=== PATIENT | male | born 1940 | race Two or more races ===

== ENCOUNTER 2024-09-20 07:04 | Emergency (ER) | payer MEDICARE, MEDICAID, SELFPAY ==
[2024-09-20 07:16] VITALS: BP 111/72; PULSE 70; RESP 18; TEMP 36.7; O2SAT 96; BMI 24.5
--- NOTE | 2024-09-20 07:47 | XR_ITS ---
Examination: Hand, right 3 views Technique: Hand AP, oblique, lateral 3 views Date and time of exam: September 20, 2024, 0755 hours INDICATIONS: Crush injury to the hand today with finger pain FINDINGS: Severe osteopenia 2 mm linear foreign body in the soft tissue between the first and second metacarpals No acute fracture IMPRESSION: No acute fracture
--- NOTE | 2024-09-20 07:49 | PD.EDHAND ---
Upper Extremity Injury RME/HPI General Chief Complaint: Hand/Wrist Problems Stated Complaint: HAND INJURY Time Seen by Provider: 09/20/24 07:20 Source: patient Arrival date/time: 09/20/24 07:04 Mode of arrival: ambulatory Limitations: no limitations RME / HPI complaint: injury to: right, hand and finger (Digit #3 4 and 5) Onset (ago): day(s) (Last night) Other Extremity Injury: Right: hand Other injuries: none Place: home Severity scale (1-10): 5 Relieving factors: immobilization Exacerbating factors: movement of extremity Context: direct blow (Hoarse versus right hand) Associated symptoms: denies other symptoms Related Data Home Medications ?Medication ?Instructions ?Recorded ?Confirmed aspirin 81 mg tablet 81 mg PO DAILY ##0 06/29/12 05/22/21 atenolol 25 mg tablet 25 mg PO BID ##0 06/29/12 05/22/21 atorvastatin 40 mg tablet (Lipitor) 40 mg PO QPM ##0 06/29/12 05/22/21 losartan 50 mg tablet (Cozaar) 50 mg PO daily ##0 06/29/12 05/22/21 amlodipine 2.5 mg tablet 2.5 mg PO QDAY 05/22/21 05/22/21 cilostazol 50 mg tablet 50 mg PO BID 05/22/21 05/22/21 tamsulosin 0.4 mg capsule mg PO 05/22/21 tamsulosin 0.4 mg capsule (Flomax) 0.4 mg PO QDAY 05/22/21 05/22/21 Allergies Allergy/AdvReac Type Severity Reaction Status Date / Time No Known Allergies Allergy Verified 09/20/24 07:11 Review of Systems Constitutional Constitutional: Reports system reviewed and no additional complaints, except as documented Eyes Eyes: Reports system reviewed and no additional complaints, except as documented, Denies dry eyes, Denies exophthalmos and Reports floaters Cardiovascular Cardiovascular: Denies chest pain with activity and Denies claudication ED Exam Narrative Physical exam: The right hand at digit #3 distally positive for a skin tear. Digit #4 at the MCP #4 and 5 positive for a macerated skin. There is decreased range of motion secondary to subjective pain. Neurovascular appears to be intact. Digit #5 the skin is a macerated and there is bone exposed. General Limitations: Present no limitations General appearance: Present alert and in no apparent distress Head Head exam: Present atraumatic Eye Eye exam: Present normal appearance and EOMI ENT ENT exam: Present normal exam, normal oropharynx and mucous membranes moist Neck Neck exam: Present normal inspection, full ROM and trachea midline Chest Chest inspection: Present normal inspection and symmetric chest wall rise Abdominal Exam Abdominal exam: Present soft and normal bowel sounds Extremities Exam Extremities exam: Present normal inspection and full ROM (As described above) Back Exam Back exam: Present normal inspection and full ROM Neurological Exam Neurological exam: Present alert and oriented X3 Psychiatric Psychiatric exam: Present normal affect and normal mood Skin Skin exam: Present warm, dry, intact (As described above) and normal color Course Course Course Narrative: The wounds will be cleaned and then dressed. An x-ray will be obtained of the right hand Quality Measures none (NA) Orders Category Date Time Status XR hand comp RT min 3V Stat Exams 09/20/24 07:47 Completed XR hand comp RT min 3V Stat Exams 09/20/24 08:45 Completed Lidocaine 1% 20 ml [Xylocaine 1% 20 ML] Med 09/20/24 10:44 Discontinued 20 ml INFL X1 ONE Vital Signs Vital signs: Vital Signs Temperature 98.1 F 09/20/24 07:16 Pulse Rate 70 09/20/24 07:16 Respiratory Rate 18 09/20/24 07:16 Blood Pressure 111/72 09/20/24 07:16 Pulse Oximetry (%) 96 09/20/24 07:16 Oxygen Delivery Method Room Air 09/20/24 07:16 Pulse ox room air is 96% PROCEDURES: Laceration Laceration 1: Site: hand Side (If applicable): right Description: irregular Amount of anesthesia used (mL): 20 Pre-repair: wound explored, irrigated extensively and deep structures intact Skin layer closed with: nylon Suture size (cm): 4-0 Number of sutures: 3 Technique: simple, interrupted Size: 4-0 Extremity Injury Patient data External records reviewed:: Other (specify) (NA) Clinical information provided by:: patient Social determinants that could affect healthcare access:: none (NA) How is presenting disease/condition affected by chronic disease/condition?: no chronic disease (NA) Evaluation data The following diagnostics were reviewed and interpreted by me:: other (specify) (NA) Lab and/or radiology exams considered but not ordered:: NA Interpretation Summary: NA Medications / Prescriptions Medications or Prescriptions considered but not ordered:: NA Medication administrations:: Medication Administration History Discontinued Medications Lidocaine HCl (Lidocaine Hcl 1% 20 Ml Vial) 20 ml INFL X1 ONE Stop: 09/20/24 10:45 Last Admin: 09/20/24 11:13 Dose: 20 ml Documented By: WES Comments: given to bell cuenca for administration NA Consultations Consultation(s) initiated? (list below): No Diagnosis Upper Extremity Injury Differential Diagnosis: finger sprain, dislocation of finger and fracture of hand Most likely diagnosis given after review of the tests above:: NA Admission Indicated Admission indicated?: not indicated Admission Request Was there a request for admission?: No Disposition Plan Disposition Plan: Discharge Discharge Attestation Discharge Attestation: The patient and all family members were given an opportunity to ask questions and understood the discharge instructions. Discharge instructions specifically effects, indications for sooner follow up or return to the emergency department, and the expected course of current diagnosis. Patient condition: Stable Discharge Plan Plan Patient Disposition: HOME (Self Care) Discharge Disposition comment: Discharged home in no apparent distress Patient condition on transfer: Stable Prescriptions/Referrals Prescriptions/Med Rec: No Action losartan [Cozaar] 50 MG tablet 50 mg PO daily Qty: 0 atorvastatin [Lipitor] 40 MG tablet 40 mg PO QPM Qty: 0 atenolol 25 MG tablet 25 mg PO BID Qty: 0 aspirin 81 MG tablet 81 mg PO DAILY Qty: 0 cilostazol 50 mg Tablet 50 mg PO BID amlodipine 2.5 mg Tablet 2.5 mg PO QDAY tamsulosin 0.4 mg Capsule PO tamsulosin [Flomax] 0.4 mg Capsule 0.4 mg PO QDAY Referrals: Ricardo Moss MD [Primary Care Provider] - In 1 week Problem List Clinical Impression: Laceration Patient/Caregiver Discharge Instructions Discharge Activity: activity as tolerated Print Language: Slovak Stand Alone Forms: Jazmine Award Info., Patient Portal Info Letter PA/MANUFACTURING QUALITY ENGINEER Supervising Physician PA/MANUFACTURING QUALITY ENGINEER Supervising Physician: Elder
--- NOTE | 2024-09-20 08:45 | XR_ITS ---
Examination: Hand, right 3 views Technique: Hand AP, oblique, lateral 3 views Date and time of exam: September 20, 2024 0904 hours INDICATIONS: Crush injury to the hand today, hand pain FINDINGS: Severe osteopenia Tiny opacities in the soft tissue between the fifth and fourth digits as well as the small linear foreign body in the soft tissue between the first and second metacarpals No acute fracture IMPRESSION: Foreign bodies as above
[2024-09-20] MEDS: LIDOCAINE HCL 1% 20 ML VIAL INFL (11:13)
[2024-09-20 12:05] VITALS: BP 115/73; PULSE 63; RESP 19; TEMP 36.6; O2SAT 99
[2024-09-20] MEDS: DIPHTH,PERTUSS(ACELL),TET VAC 0.5 ML SYR- ADULT IMi (12:31)
== END 2024-09-20 12:51 | disposition home or self-care (01) ==
PROVIDERS: Emergency Provider Physician Assistant; PCP Internal Medicine
DX: S61.411A Laceration without foreign body of right hand, initial encounter (principal); Z23 Encounter for immunization
CPT/HCPCS: 12001; 73130; 90471; 90715; 99283; J3490

== ENCOUNTER → 2024-10-05 | Outpatient (CLI) | payer MEDICARE, MEDICAID, SELFPAY | END | disposition home or self-care (01) | LOC: SWHD 08:16 | PROVIDERS: PCP Internal Medicine; Referring Provider Internal Medicine; Visit Provider Student in an Organized Health Care Education/Training Program | DX: S61.401A Unspecified open wound of right hand, initial encounter (principal); S61.202A Unspecified open wound of right middle finger without damage to nail, initial encounter; W55.12XA Struck by horse, initial encounter; Y93.9 Activity, unspecified; Z87.891 Personal history of nicotine dependence; N40.0 Benign prostatic hyperplasia without lower urinary tract symptoms; N18.9 Chronic kidney disease, unspecified; Z95.2 Presence of prosthetic heart valve | CPT/HCPCS: 11042; 97597; 99213; A9270; G0463 ==

== ENCOUNTER → 2024-10-11 | Outpatient (CLI) | payer MEDICARE, MEDICAID, SELFPAY ==
--- NOTE | 2024-10-11 | XR_ITS ---
Examination: Wrist, right 3 views Technique: Wrist AP, oblique, lateral 3 views Date and time: October 11, 2024, 0734 hours INDICATIONS: Injury to the wrist 2 weeks ago, wrist pain FINDINGS: 2 mm opaque foreign body in the soft tissue between the first and second metacarpals No acute fracture No dislocation IMPRESSION: No acute wrist fracture
--- NOTE | 2024-10-11 | XR_ITS ---
Examination: Hand, right 3 views Technique: Hand AP, oblique, lateral 3 views Date and time of exam: October 11, 2024, 0730 hours INDICATIONS: Injury to the hand 2 weeks ago, hand pain FINDINGS: 2 mm foreign body in the soft tissue between the first and second metacarpals 1 mm foreign body in the soft tissue between the proximal phalanges fourth and fifth digits Mild deformity distal aspect proximal phalanx fifth digit IMPRESSION: Opaque foreign bodies as above Recommend follow-up cone views fifth digit
== END | disposition home or self-care (01) ==
LOC: CDIM 07:09
DX: S60.351A Superficial foreign body of right thumb, initial encounter (principal); S60.450A Superficial foreign body of right index finger, initial encounter; S69.91XA Unspecified injury of right wrist, hand and finger(s), initial encounter; X58.XXXA Exposure to other specified factors, initial encounter
CPT/HCPCS: 73110; 73130

== ENCOUNTER → 2024-10-12 | Outpatient (CLI) | payer MEDICARE, MEDICAID, SELFPAY | END | disposition home or self-care (01) | LOC: SWHD 14:10 | PROVIDERS: PCP Internal Medicine; Referring Provider Internal Medicine; Visit Provider Student in an Organized Health Care Education/Training Program | DX: S61.401A Unspecified open wound of right hand, initial encounter (principal); S61.202A Unspecified open wound of right middle finger without damage to nail, initial encounter; W55.12XA Struck by horse, initial encounter; Z87.891 Personal history of nicotine dependence; N40.0 Benign prostatic hyperplasia without lower urinary tract symptoms; N18.9 Chronic kidney disease, unspecified; Z95.2 Presence of prosthetic heart valve | CPT/HCPCS: 97597; A9270 ==

== ENCOUNTER → 2024-10-26 | Outpatient (CLI) | payer MEDICARE, MEDICAID, SELFPAY | END | disposition home or self-care (01) | LOC: SWHD 14:39 | PROVIDERS: PCP Internal Medicine; Referring Provider Internal Medicine; Visit Provider Student in an Organized Health Care Education/Training Program | DX: S61.401A Unspecified open wound of right hand, initial encounter (principal); S61.202A Unspecified open wound of right middle finger without damage to nail, initial encounter; W55.12XA Struck by horse, initial encounter; Z87.891 Personal history of nicotine dependence; N40.0 Benign prostatic hyperplasia without lower urinary tract symptoms; N18.9 Chronic kidney disease, unspecified; Z95.2 Presence of prosthetic heart valve | CPT/HCPCS: 97597; A9270 ==

== ENCOUNTER → 2024-11-02 | Outpatient (CLI) | payer MEDICARE, MEDICAID, SELFPAY | END | disposition home or self-care (01) | LOC: SWHD 10:17 | PROVIDERS: PCP Internal Medicine; Referring Provider Internal Medicine; Visit Provider Student in an Organized Health Care Education/Training Program | DX: S61.401A Unspecified open wound of right hand, initial encounter (principal); W55.12XA Struck by horse, initial encounter; Z87.891 Personal history of nicotine dependence; N40.0 Benign prostatic hyperplasia without lower urinary tract symptoms; Z95.2 Presence of prosthetic heart valve | CPT/HCPCS: 99213; A9270; G0463 ==

== ENCOUNTER → 2024-11-29 | Outpatient (CLI) | payer MEDICARE, MEDICAID, SELFPAY ==
[2024-11-29 17:45] LABS: Basophils # (Auto) 0.0 Thou/mm3 (0.0-0.2); Basophils % (Auto) 1 % (0-2.5); Eosinophils # (Auto) 0.2 Thou/mm3 (0.0-0.5); Eosinophils % (Auto) 2 % (0-10); Hematocrit 39.3 % (41.0-53.0); Hemoglobin 13.2 g/dL (13.5-16.0); Immature Granulocytes Auto 0.02 Thou/mm3 (0.00-0.00); Lymphocytes # (Auto) 2.6 Thou/mm3 (1.0-4.8); Lymphocytes % (Auto) 32 % (10-50); Mean Corpuscular HGB Conc 33.6 g/dl (31.0-37.0); Mean Corpuscular Hemoglobin 31.7 pg (25.0-35.0); Mean Corpuscular Volume 95 fL (80-100); Monocytes # (Auto) 0.7 Thou/mm3 (0.0-0.8); Monocytes % (Auto) 8 % (0-12); Neutrophils # (Auto) 4.7 Thou/mm3 (1.8-7.7); Neutrophils % (Auto) 57 % (37-80); Nucleated Red Blood Cell # 0.00 Thou/mm3 (0.00-0.00); Nucleated Red Blood Cell % 0 /100 WBC (0); Platelet Count 173 Thou/mm3 (140-440); RDW Standard Deviation 46.7 fL (35.1-43.9); Red Blood Count 4.16 Miln/mm3 (4.50-5.90); White Blood Count 8.2 Thou/mm3 (3.8-10.6)
[2024-11-29 19:36] LABS: Glucose Estimated Average 126 mg/dL (80-131); Hemoglobin A1C 6.0 % Hgb (4.8-6.0)
[2024-11-29 20:25] LABS: Vitamin D 25 Hydroxy Total 62.5 ng/mL (7.3-40.2)
[2024-11-29 20:26] LABS: Alanine Aminotransferase 16 U/L (10-49); Albumin, Serum 4.1 gm/dL (3.4-4.8); Albumin/Globulin Ratio 1.5 (1.2-2.2); Alkaline Phosphatase 96 U/L (46-116); Anion Gap 12 (7-16); Aspartate Amino Transferase 22 U/L (0-34); BUN/Creatinine Ratio 14 Ratio (12-20); Bilirubin,Total 1.1 mg/dL (0.3-1.2); Blood Urea Nitrogen 28 mg/dL (9-23); Calcium 8.7 mg/dL (8.3-10.6); Calcium (Corrected) 8.7 mg/dL (8.5-10.1); Carbon Dioxide 20.6 mMol/L (20.0-31.0); Cardiac Risk Estimate 3.0 RATIO (4.0-6.7); Chloride 111 mMol/L (98-107); Cholesterol 120 mg/dL (132-200); Creatinine (Component) 2.0 mg/dL (0.6-1.3); Free T4 (Free Thyroxine) 1.07 ng/dL (0.89-1.76); Globulin 2.8 gm/dL (2.3-3.5); Glucose 105 mg/dL (74-106); HDL Cholesterol 40 mg/dL (40-60); LDL Cholesterol,Calculated 55 mg/dL (0-130); Osmolality,Calculated 292 (275-295); Potassium 4.1 mMol/L (3.4-5.1); Sodium 144 mMol/L (136-145); Thyroid Stimulating Hormone 1.43 uIU/mL (0.55-4.78); Total Protein 6.9 gm/dL (5.7-8.2); Triglycerides 123 mg/dL (30-150); eGFR 33 See Note
== END | disposition home or self-care (01) ==
LOC: COPL 16:36
PROVIDERS: PCP Internal Medicine; Referring Provider Internal Medicine; Visit Provider Internal Medicine
DX: I11.0 Hypertensive heart disease with heart failure (principal); E11.9 Type 2 diabetes mellitus without complications; E55.9 Vitamin D deficiency, unspecified
CPT/HCPCS: 36415; 80053; 80061; 82306; 83036; 84439; 84443; 85025

== ENCOUNTER 2024-12-03 14:21 | Inpatient (IN) | payer MEDICARE, MEDICAID, SELFPAY ==
[2024-12-03] VITALS (7 sets, daily range): BP systolic 113–162; BP diastolic 69–92; PULSE 61–76; RESP 14–95; TEMP 36.1–36.9; O2SAT 90–97; BMI 21.2
--- NOTE | 2024-12-03 14:44 | XR_ITS ---
Examination: CT brain head without contrast. 2-D sagittal coronal reconstructions Date and time of exam:December 03, 2024 1451 hours INDICATIONS: Stroke alert, onset focal neurologic deficit today Technique: Multiple CT axial sections of the brain have been obtained, 5 mm slice thickness. Contrast has not been administered. 2-D sagittal, coronal reconstructions have been obtained Low dose protocols were performed. One or more of the following dose reduction techniques were used; automated exposure control, adjustment of the mA and/or KV according to patient size, use of iterative reconstruction technique. Findings: No significant ventricular enlargement. Intra-axial or extra-axial hemorrhage density is not seen. No mass effect or midline shift Basal cisterns are not remarkable. Fourth ventricle is midline. Cranial vault intact. Sphenoid sinusitis Impression: Negative for acute hemorrhage, mass effect or midline shift
--- NOTE | 2024-12-03 14:44 | XR_ITS ---
Examination: CTA carotids with intravenous contrast CTA brain, head with intravenous contrast. 2-D sagittal, coronal reconstructions. 3-D reconstructions. Exam date and time: December 03, 2024 1445 hours INDICATIONS: Stroke alert, onset left-sided body weakness beginning 5 minutes ago CTDI: vol (mGy) 42.1 DLP: (mGycm) 363 Technique: Multiple CTA axial brain, head carotid images post intravenous contrast injection 75 cc, Isovue-370. 2-D sagittal, coronal reconstructions. 3-D reconstructions, 3-D post processing including vascular maximum intensity projection images. Low dose protocols were performed. One or more of the following dose reduction techniques were used; automated exposure control, adjustment of the mA and/or KV according to patient size, use of iterative reconstruction technique. Findings: Significant calcification carotid bifurcations 30-50% stenosis origin right internal carotid artery 40-60% stenosis origin left internal carotid artery Dominant left vertebral artery, atretic right vertebral artery with no filling of the proximal right vertebral artery No cerebral large vessel arterial occlusions or thrombus IMPRESSION: 30-50% stenosis origin right internal carotid artery 40-60% stenosis origin left internal carotid artery Dominant left vertebral artery Atretic right vertebral artery with no filling of the proximal right vertebral artery in the neck Recommend carotid and vertebral Doppler sonography to confirm the carotid stenoses and exclude retrograde filling of the right vertebral artery No cerebral large vessel arterial occlusions
--- NOTE | 2024-12-03 14:55 | PD.EDWEAK ---
ED Weakness RME/HPI General Chief complaint: Weakness Stated complaint: WEAKNESS Time Seen by Provider: 12/03/24 14:34 Arrival date/time: 12/03/24 14:21 Limitations: no limitations RME / HPI RME / HPI Narrative: 84 year old male with history of two-vessel bypass surgery, aortic valve replacement, hypertension, presents to the ED BIBA for evaluation of weakness beginning at ~ 13:44h today. States he noted the left sided weakness while trying to get out of the car and family called 911. Reportedly weakness resolved after 5 minutes. Per medics, the patient was able to get out of the car and walk to the [facility] with little to no assistance. In the ED, patient states the weakness has resolved. No other complaints reported. Prehospital vital signs: 117/74, HR 76, 90% on room air, placed on 6L nasal cannula with improvement to 98%, blood glucose 133. Related Data Home Medications ?Medication ?Instructions ?Recorded ?Confirmed aspirin 81 mg tablet 81 mg PO DAILY ##0 06/29/12 05/22/21 atenolol 25 mg tablet 25 mg PO BID ##0 06/29/12 05/22/21 atorvastatin 40 mg tablet (Lipitor) 40 mg PO QPM ##0 06/29/12 05/22/21 losartan 50 mg tablet (Cozaar) 50 mg PO daily ##0 06/29/12 05/22/21 amlodipine 2.5 mg tablet 2.5 mg PO QDAY 05/22/21 05/22/21 cilostazol 50 mg tablet 50 mg PO BID 05/22/21 05/22/21 tamsulosin 0.4 mg capsule mg PO 05/22/21 tamsulosin 0.4 mg capsule (Flomax) 0.4 mg PO QDAY 05/22/21 05/22/21 Allergies Allergy/AdvReac Type Severity Reaction Status Date / Time No Known Allergies Allergy Verified 12/03/24 15:16 Review of Systems Review of Systems Systems Reviewed: All systems reviewed, normal except as documented Past Medical History Past Medical History CARDIAC: Positive Cardiac Disorders, Cardiac Arrhythmia, Coronary Artery Disease (hx of bypass), Atherosclerotic Heart Disease, Edema and Hypertension GASTROINTESTINAL: Positive Gastrointestinal Disorders GENITOURINARY: Positive Genitourinary Disorders and Renal Disease ENT: Positive Deafness (KOI) Family History FAMILY HISTORY: Positive Family Cancer Surgical History SURGICAL: Positive Cardiac Surgery, Open Heart Surgery, Coronary Artery Bypass Graft, Valve Replacement, Coronary Stent and Abdominal Surgery (Fistula repair) Social History SMOKING STATUS: Never smoker ED Exam General Limitations: Present no limitations General appearance: Present alert and in no apparent distress Head Head exam: Present atraumatic, normocephalic and normal inspection Eye Eye exam: Present normal appearance, PERRL and EOMI ENT ENT exam: Present normal exam, normal oropharynx and mucous membranes moist Neck Neck exam: Present normal inspection, full ROM and trachea midline Chest Chest inspection: Present normal inspection and symmetric chest wall rise Respiratory Respiratory exam: Present normal lung sounds bilaterally Cardiovascular Cardiovascular exam: Present regular rate, normal rhythm and normal heart sounds Abdominal Exam Abdominal exam: Present soft and normal bowel sounds Extremities Exam Extremities exam: Present normal inspection and full ROM Back Exam Back exam: Present normal inspection and full ROM Neurological Exam Neurological exam: Present alert, oriented X3 and CN II-XII intact; Absent motor sensory deficit Expanded Neurological Exam Speech: Present fluid speech Motor strength - LUE: 5/5 Motor strength - RUE: 5/5 Motor strength - LLE: 5/5 Motor strength - RLE: 5/5 Psychiatric Psychiatric exam: Present normal affect and normal mood Skin Skin exam: Present warm, dry, intact and normal color Course Quality Measures Suspected type of Stroke: TIA Last known well (date): 12/03/24 Last known well (time): 13:44 Tenecteplase given: Reason(s) TPA not given: Stroke severity too mild (non-disabling) not given stroke Orders Category Date Time Status Admit to Inpatient Status Routine Admission 12/03/24 16:02 Active Patient Condition Routine Admission 12/03/24 16:01 Ordered Bedside Blood Glucose NOW Care 12/03/24 14:44 Active COVID-19 Screening Questionnaire NOW Care 12/03/24 15:59 Active Cleaning Staff Supervisor NOW Care 12/03/24 14:44 Active Continuous Pulse Oximetry NOW Care 12/03/24 14:44 Completed Decision to Admit X1 Care 12/03/24 15:58 Completed EKG (ED ONLY) *Do not use* NOW Care 12/03/24 15:21 Completed Insert IV NOW Care 12/03/24 14:44 Active NIH Stroke Scale now Care 12/03/24 14:44 Active NPO NOW Care 12/03/24 14:44 Active Neuro Check Q15MIN Care 12/03/24 14:44 Active Notify provider NEEDED Care 12/03/24 16:01 Active Nurse Swallow Screen x1 Care 12/03/24 14:44 Active Consult to Neurology / Tele-Neurology Routine Cons 12/03/24 14:[address] angio stroke protocol Stat Exams 12/03/24 14:[address] stroke protocol Stat Exams 12/03/24 14:44 Completed EKG (ED Only) Stat Exams 12/03/24 15:21 Draft Alcohol, Blood Medical Stat Lab 12/03/24 14:57 Completed B-Type Natriuretic Peptide Stat Lab 12/03/24 14:57 Completed CBC Stat Lab 12/03/24 14:57 Completed Comprehensive Metabolic Panel Stat Lab 12/03/24 14:57 Completed Drug Screen,Urine Stat Lab 12/03/24 15:41 Received Magnesium Stat Lab 12/03/24 14:57 Completed Partial Thromboplastin Time Stat Lab 12/03/24 14:57 Completed Prothrombin Time with INR Stat Lab 12/03/24 14:57 Completed Troponin I Stat Lab 12/03/24 14:57 Completed Urinalysis Stat Lab 12/03/24 15:41 Completed Clopidogrel [Plavix] Med 12/03/24 15:02 Discontinued 300 mg PO X1 ONE Sodium Chloride 0.9% 1000 ml [Ns] 1,000 ml Med 12/03/24 14:45 Active IV 60 mls/hr Code Status Routine Oth 12/03/24 16:00 Ordered Oxygen Delivery NOW RT 12/03/24 14:44 Active Vital Signs Vital signs: Vital Signs Temperature 98.4 F 12/03/24 14:25 Pulse Rate 76 12/03/24 14:25 Respiratory Rate 18 12/03/24 14:25 Blood Pressure 113/73 12/03/24 14:25 Pulse Oximetry (%) 95 12/03/24 14:25 Oxygen Delivery Method Nasal Cannula 12/03/24 14:25 Oxygen Flow Rate 3 12/03/24 14:25 Weakness MDM Narrative MDM Narrative:: Cheyenne Donahue am scribing for and in the presence of Dr. Friedman. Patient data External records reviewed:: [facility] previous records (I reviewed ED visit on 09/20/2024 ) and EMS form Clinical information provided by:: patient, EMS and family Social determinants that could affect healthcare access:: none Patient has the following chronic illnesses:: two-vessel bypass surgery, aortic valve replacement, hypertension How is presenting disease/condition affected by chronic disease/condition?: exacerbated by Evaluation data The following diagnostics were reviewed and interpreted by me:: lab results, radiology exam(s) and EKG tracing(s) (EKG @ 1524h NSR with first degree AV block, rate 67, borderline LAD, RBBB) Lab and/or radiology exams considered but not ordered:: None Interpretation Summary: Ordering Physician: Ernie Friedman MD Date of Service: 12/03/24 Procedure(s): CT stroke protocol Accession Number(s): [id number] cc: Ernie Friedman MD; Huang Calix MD; NO PRIMARY/FAMILY,PHYSICIAN~ Examination: CT brain head without contrast. 2-D sagittal coronal reconstructions Date and time of exam:December 03, 2024 1451 hours INDICATIONS: Stroke alert, onset focal neurologic deficit today Technique: Multiple CT axial sections of the brain have been obtained, 5 mm slice thickness. Contrast has not been administered. 2-D sagittal, coronal reconstructions have been obtained Low dose protocols were performed. One or more of the following dose reduction techniques were used; automated exposure control, adjustment of the mA and/or KV according to patient size, use of iterative reconstruction technique. Findings: No significant ventricular enlargement. Intra-axial or extra-axial hemorrhage density is not seen. No mass effect or midline shift Basal cisterns are not remarkable. Fourth ventricle is midline. Cranial vault intact. Sphenoid sinusitis Impression: Negative for acute hemorrhage, mass effect or midline shift Dictated By: Huang Calix MD Signed By: <Electronically signed by Huang Calix MD in OV> 12/03/24 2773 Ordering Physician: Ernie Friedman MD Date of Service: 12/03/24 Procedure(s): CT angio stroke protocol Accession Number(s): [id number] cc: Ernie Friedman MD; Huang Calix MD; NO PRIMARY/FAMILY,PHYSICIAN~ Examination: CTA carotids with intravenous contrast CTA brain, head with intravenous contrast. 2-D sagittal, coronal reconstructions. 3-D reconstructions. Exam date and time: December 03, 2024 1445 hours INDICATIONS: Stroke alert, onset left-sided body weakness beginning 5 minutes ago CTDI: vol (mGy) 42.1 DLP: (mGycm) 363 Technique: Multiple CTA axial brain, head carotid images post intravenous contrast injection 75 cc, Isovue-370. 2-D sagittal, coronal reconstructions. 3-D reconstructions, 3-D post processing including vascular maximum intensity projection images. Low dose protocols were performed. One or more of the following dose reduction techniques were used; automated exposure control, adjustment of the mA and/or KV according to patient size, use of iterative reconstruction technique. Findings: Significant calcification carotid bifurcations 30-50% stenosis origin right internal carotid artery 40-60% stenosis origin left internal carotid artery Dominant left vertebral artery, atretic right vertebral artery with no filling of the proximal right vertebral artery No cerebral large vessel arterial occlusions or thrombus IMPRESSION: 30-50% stenosis origin right internal carotid artery 40-60% stenosis origin left internal carotid artery Dominant left vertebral artery Atretic right vertebral artery with no filling of the proximal right vertebral artery in the neck Recommend carotid and vertebral Doppler sonography to confirm the carotid stenoses and exclude retrograde filling of the right vertebral artery No cerebral large vessel arterial occlusions Dictated By: Huang Calix MD Signed By: <Electronically signed by Huang Calix MD in OV> 12/03/24 1522 Medications / Prescriptions Medications or Prescriptions considered but not ordered:: None Medication administrations:: Medication Administration History Acetaminophen (Acetaminophen 325 Mg Tablet) 650 mg PO Q6H PRN PRN Reason: PAIN SCALE 1-3 (mild Stop: 01/02/25 16:40 Enoxaparin Sodium (Enoxaparin Sod Inj 40 Mg/0.4 Ml Syringe) 40 mg SC QPM BETTY Stop: 12/18/24 20:59 Sodium Chloride (Ns) 1,000 mls @ 60 mls/hr IV .[id number] BETTY Stop: 12/05/24 14:44 Last Admin: 12/03/24 16:28 Dose: 60 mls/hr Documented By: WES Ondansetron HCl (Ondansetron Inj 2 Mg/Ml Inj 2 Ml) 4 mg IVP Q6H PRN; Protocol PRN Reason: NAUSEA OR VOMITING Stop: 01/02/25 16:35 Discontinued Medications Clopidogrel Bisulfate (Clopidogrel Bisulfate 75 Mg Tablet) 300 mg PO X1 ONE Stop: 12/03/24 15:03 Last Admin: 12/03/24 16:25 Dose: 300 mg Documented By: WES See above Consultations Consultation(s) initiated? (list below): Yes Consultation #1 (Physician, Specialty, Details): I spoke with teleneurologist Dr. Kimball. Reports patients symptoms most consistent with TIA, not a TNK candidate at this time. Advised admission for stroke work-up. Time: 15:01 Consultation #2 (Physician, Specialty, Details): I spoke with hospitalist team C regarding admission. Diagnosis Weakness Differential Diagnosis: acute myocardial infarction, hypoglycemia, sepsis, dehydration and other (CVA, TIA ) Most likely diagnosis given after review of the tests above:: TIA S/P CABG S/P AVR Admission Indicated Admission indicated?: indicated Admission Request Was there a request for admission?: Yes Admission Attestation Admission request attestation: Discussed case with [] from Hospitalist service regarding admission. Discussed patients ED course, exam findings, labs, and radiology results. The Hospitalist [agrees,declines] to accept the patient for admission. Disposition Plan Disposition Plan: Admit Critical Care Time Critical Care Time Critical Care Time: Yes Total Critical Care Time (min.): 35 Attestation: The high probability of sudden, clinically significant deterioration in the patient's condition required the highest level of my preparedness to intervene urgently. The services I provided to this patient were to treat and/or prevent clinically significant deterioration. Services included the following: chart data review, reviewing nursing notes and/or old charts, documentation time, audit consultant collaboration regarding findings and treatment options, medication orders and management, direct patient care, vital sign assessments and ordering, interpreting and reviewing diagnostic studies and lab tests. Aggregate critical care time includes only time during which I was engaged in work directly related to the patient's care, as described above, whether at bedside or elsewhere in the Emergency Department. It did not include time spent performing other reported procedures or the services of residents, students, nurses or physician assistants. Discharge Plan Plan Patient Disposition: Admit Acute Care w/in Hospital Problem List Clinical Impression: TIA (transient ischemic attack), S/P AVR, S/P CABG (coronary artery bypass graft)
--- NOTE | 2024-12-03 15:04 | ESCONSULT_ITS ---
Tele Neuro Consultation Consultation Date 12/03/24 Most Recent Vital Signs Last Vital Signs Temp 98.4 F 12/03/24 14:25 Pulse 76 12/03/24 14:25 Resp 18 12/03/24 14:25 BP 113/73 12/03/24 14:25 Pulse Ox 95 12/03/24 14:25 O2 Del Method Nasal Cannula 12/03/24 14:25 O2 Flow Rate 3 12/03/24 14:25 Consultation Narrative [facility] Tele[facility] Patient Name:???Ricardo Alvarado Date of :???1940 Identification Number:??? Date of Service:???12/03/2024 14:43:50 Diagnosis:?G45.9 - Transient cerebral ischemic attack, unspecified Impression: ?84 y/o man with history of HTN and valve replacement presenting with transient left sided weakness. Not a thrombolytic candidate as his symptoms have completely resolved. Strongly suspect TIA, would recommend admission under stroke protocol for further evaluation. Our recommendations are outlined below. Recommendations: ? Stroke/Telemetry Floor ? Neuro Checks (Q4) ? Bedside Swallow Eval ? DVT Prophylaxis ? IV Fluids, Normal Saline ? Head of Bed 30 Degrees ? Euglycemia and Avoid Hyperthermia (PRN Acetaminophen) ? Bolus with Clopidogrel 300 mg bolus x1 and initiate dual antiplatelet therapy with Aspirin 81 mg daily and Clopidogrel 75 mg daily ? Antihypertensives PRN if Blood pressure is greater than 220/120 or there is a concern for End organ damage/contraindications for permissive HTN. If blood pressure is greater than 220/120 give labetalol PO or IV or Vasotec IV with a goal of 15% reduction in BP during the first 24 hours. Sign Out: ? Discussed with Emergency Department Provider Advanced Imaging: Advanced imaging has been ordered. Results pending. Metrics: Last Known Well: 12/03/2024 13:30:00 Dispatch Time: 12/03/2024 14:43:50 Arrival Time: 12/03/2024 14:21:00 Initial Response Time: 12/03/2024 14:45:36Symptoms: left sided weakness. Initial patient interaction: 12/03/2024 14:52:58 NIHSS Assessment Completed: 12/03/2024 14:57:59Patient is not a candidate for Thrombolytic. Thrombolytic Medical Decision: 12/03/2024 14:58:01Patient was not deemed candidate for Thrombolytic because of following reasons: Resolved symptoms . CT Head: I personally reviewed all the CT images that were available to me and it showed: no acute findings. Primary Provider Notified of Diagnostic Impression and Management Plan on: 12/03/2024 15:01:40 History of Present Illness:Patient is a 84 year old Male. Patient was brought by private transportation with symptoms of left sided weakness. 84 years old patient presented with a transient episode of left-sided weakness that occurred at approximately 13:30.While waiting for a tire repair, the patie nt was sitting behind the steering wheel when he attempted to lift his left arm to the steering wheel and experienced a strange sensation, noting difficulty raising the arm. Upon trying to exit the vehicle, the patient's left leg failed to support him, causing him to fall to the ground. The patient reports being unable to get up and remained on the floor for approximately five to seven minutes before the symptoms spontaneously resolved. After regaining strength in both the left arm and leg simultaneously, the patient was able to get back into the truck and called his son for assistance. The patient has a medical history significant for hypertension and a previous heart valve replacement. The patient takes an antiplatelet medication but denies being on anticoagulants such as Eliquis or Coumadin. Symptoms have completely resolved. Past Medical History: ?Hypertension Medications: No Anticoagulant use? Antiplatelet use:?Yes?ASA Reviewed EMR for current medications Allergies:? Reviewed Social History: Drug Use: No Family History: There is no family history of premature cerebrovascular disease pertinent to this consultation ROS : 14 Points Review of Systems was performed and was negative except mentioned in HPI. Past Surgical History: There Is No Surgical History Contributory To Today?s Visit Examination: BP(110/70),?Pulse(76), 1A: Level of Consciousness - Alert; keenly responsive?+ 0 1B: Ask Month and Age - Both Questions Right?+ 0 1C: Blink Eyes & Squeeze Hands - Performs Both Tasks?+ 0 2: Test Horizontal Extraocular Movements - Normal?+ 0 3: Test Visual Moody - No Visual Loss?+ 0 4: Test Facial Palsy (Use Grimace if Obtunded) - Normal symmetry?+ 0 5A: Test Left Arm Motor Drift - No Drift for 10 Seconds?+ 0 5B: Test Right Arm Motor Drift - No Drift for 10 Seconds?+ 0 6A: Test Left Leg Motor Drift - No Drift for 5 Seconds?+ 0 6B: Test Right Leg Motor Drift - No Drift for 5 Seconds?+ 0 7: Test Limb Ataxia (FNF/Heel-Barbosa) - No Ataxia?+ 0 8: Test Sensation - Normal; No sensory loss?+ 0 9: Test Language/Aphasia - Normal; No aphasia?+ 0 10: Test Dysarthria - Normal?+ 0 11: Test Extinction/Inattention - No abnormality?+ 0 NIHSS Score:?0 Pre-Morbid Modified Jose C Scale: 0 Points = No symptoms at all Spoke with :?Dr. Friedman This consult was conducted in real time using interactive audio and video technology. Patient was informed of the technology being used for this visit and agreed to proceed. Patient located in hospital and provider located at home/office setting. Patient is being evaluated for possible acute neurologic impairment and high probability of imminent or life-threatening deterioration. I spent total of 19 minutes providing care to this patient, including time for face to face visit via telemedicine, review of medical records, imaging studies and discussion of findings with providers, the patient and/or family. Dr Arcadio Kimball [facility] For Inpatient follow-up with [facility] physician please call [facility] at . As we are not an outpatient service for any post hospital discha rge needs please contact the hospital for assistance. If you have any questions for the [facility] physicians or need to reconsult for clinical or diagnostic changes please contact us via [facility] at . Signature :?Arcadio Kimball
[2024-12-03 15:08] LABS: Basophils # (Auto) 0.0 Thou/mm3 (0.0-0.2); Basophils % (Auto) 0 % (0-2.5); Eosinophils # (Auto) 0.1 Thou/mm3 (0.0-0.5); Eosinophils % (Auto) 1 % (0-10); Hematocrit 40.0 % (41.0-53.0); Hemoglobin 13.6 g/dL (13.5-16.0); Immature Granulocytes Auto 0.02 Thou/mm3 (0.00-0.00); Lymphocytes # (Auto) 1.2 Thou/mm3 (1.0-4.8); Lymphocytes % (Auto) 13 % (10-50); Mean Corpuscular HGB Conc 34.0 g/dl (31.0-37.0); Mean Corpuscular Hemoglobin 31.7 pg (25.0-35.0); Mean Corpuscular Volume 93 fL (80-100); Monocytes # (Auto) 0.6 Thou/mm3 (0.0-0.8); Monocytes % (Auto) 7 % (0-12); Neutrophils # (Auto) 6.9 Thou/mm3 (1.8-7.7); Neutrophils % (Auto) 79 % (37-80); Nucleated Red Blood Cell # 0.00 Thou/mm3 (0.00-0.00); Nucleated Red Blood Cell % 0 /100 WBC (0); Platelet Count 165 Thou/mm3 (140-440); RDW Standard Deviation 45.9 fL (35.1-43.9); Red Blood Count 4.29 Miln/mm3 (4.50-5.90); White Blood Count 8.8 Thou/mm3 (3.8-10.6)
--- NOTE | 2024-12-03 15:21 | EKG_ITS ---
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
[2024-12-03 15:25] LABS: INR 1.0 (0.9-1.3); Partial Thromboplastin Time 25.7 Seconds (22.0-36.0); Prothrombin Time 10.9 Seconds (9.0-12.2)
[2024-12-03 15:27] LABS: B-Type Natriuretic Peptide 39 pg/mL (0-100)
[2024-12-03 15:40] LABS: Alanine Aminotransferase 19 U/L (10-49); Albumin, Serum 4.1 gm/dL (3.4-4.8); Albumin/Globulin Ratio 1.7 (1.2-2.2); Alcohol, Blood Medical < 3.0 mg/dL (0-10.0); Alkaline Phosphatase 103 U/L (46-116); Anion Gap 11 (7-16); Aspartate Amino Transferase 19 U/L (0-34); BUN/Creatinine Ratio 16 Ratio (12-20); Bilirubin,Total 1.3 mg/dL (0.3-1.2); Blood Urea Nitrogen 32 mg/dL (9-23); Calcium 9.1 mg/dL (8.3-10.6); Calcium (Corrected) 9.1 mg/dL (8.5-10.1); Carbon Dioxide 21.9 mMol/L (20.0-31.0); Chloride 111 mMol/L (98-107); Creatinine (Component) 2.0 mg/dL (0.6-1.3); Estimated Creatinine Clearance 24.0 mL/min (>60); Globulin 2.4 gm/dL (2.3-3.5); Glucose 124 mg/dL (74-106); Magnesium 2.2 mg/dL (1.6-2.6); Osmolality,Calculated 294 (275-295); Potassium 3.8 mMol/L (3.4-5.1); Sodium 144 mMol/L (136-145); Total Protein 6.5 gm/dL (5.7-8.2); Troponin I < 0.020 ng/mL (0.0-0.045); eGFR 33 See Note
[2024-12-03 15:58] LABS: Collection Type, Urine Catheter; Squamous Epithelial Cell,Urine 0 /hpf (0-5)
[2024-12-03 16:21] LABS: Bilirubin,Urine Negative (Negative); Blood,Urine Negative (Negative); Clarity,Urine Clear (Clear/Hazy); Color,Urine Lt-Yellow (Lt Yel-Yel); Glucose, Urine Negative (Negative); Ketones,Urine Negative (Negative); Leukocyte Esterase,Urine Negative (Negative); Nitrite,Urine Negative (Negative); PH,Urine 6.5 (5.0-7.0); Protein,Urine Negative (Neg - Trace); RBC,Urine 1 /hpf (0-3); Specific Gravity,Urine 1.043 (1.001-1.035); Urobilinogen,Urine Negative mg/dL (0.0-1.0); WBC,Urine < 1 /hpf (0-5)
[2024-12-03] MEDS: CLOPIDOGREL BISULFATE 75 MG TABLET 300 MG PO (16:25)
[2024-12-03] MEDS: SODIUM CHLORIDE 0.9% 1000 ML 1,000 ML 60 ML IV (16:28)
[2024-12-03 17:48] LABS: Amphetamine/Methamp Scrn,U Negative (Negative); Barbiturate Screen,Urine Negative (Negative); Benzodiazepines Screen,Urine Negative (Negative); Benzoylecgonine Screen, Ur Negative (Negative); Fentanyl Screen,Urine Negative (Negative); Opiate Screen,Urine Negative (Negative); THC Screen,Urine Negative (Negative)
--- NOTE | 2024-12-03 17:51 | ESHP_ITS ---
<Statement entered by Raymundo Santo MD - 12/03/24 18:40> Patient examined and case discussed with the team including attending physician. Note reviewed, I agree with the care plan as documented. Please refer to the note below for further details. - Raymundo Santo MD, PGY 3 Disclaimer: The document may contain phonetic/typographic errors due to voice recognition software. These errors are purely due to imperfections in the software program. Documentation for date of: 12/03/24 HPI History of Present Illness Chief complaint: Left sided Weakness History of present illness: 84 year old independent male with history of two-vessel bypass surgery, aortic valve replacement in 2012, hypertension, presents to the ED BIBA for evaluation of weakness beginning at ~ 13:44h today. Patient was getting out of his truck when he noticed weakness in his left arm and leg. He couldn't support his body weight and slowly slid to the ground. Denied a hard fall, and did not hit his head. After about laying on the ground for about 5 mins, patient regained his strength, got back in the truck, called his son, who then sent the ambulance. Patient denies losing consciousness, dizziness, or any aura like symptoms prior to his weakness episode. Patient denies any similar previous episodes. Currently, patient believes he is back to his baseline with no residual symptoms. PMH: Hypertension, BPH, CAD s/p two vessel bypass surgery and aortic valve replacement. PSHx: Two vessel bypass surgery and aortic valve replacement surgery in 2012. Bladder reapir surgery also in 2012. Meds: Patient not aware, pending med rec Social: Patient is fully independent. Lives by himself and has horses and other animals at his house that he enjoy spending time with. He cooks his own food from scratch. Brother in law lives next door who often visits him. Has good support from his children if he needs them. Rarely drinks alcohol, stopped smoking at the age of 32 (used to smoke occasionally), and denies any other recreational drug use. Code: Full, but doesnt want to live in a vegetative state. Exam Vital Signs Temp Pulse Resp BP Pulse Ox O2 Del Method O2 Flow Rate 97.5 F 66 16 144/92 H 96 Nasal Cannula 2 12/03/24 16:38 12/03/24 16:38 12/03/24 16:38 12/03/24 16:38 12/03/24 16:38 12/03/24 16:38 12/03/24 16:38 Narrative Exam Gen: Alert, no acute distress. Pleasantly conversational and non-toxic appearing. Skin: Nomral skin turgor, no rash, ecchymoses, and no signs of cyanosis. HEENT: Normocephalic, atraumatic.? Normal conjunctiva, PERRL. Dry oral mucosa. No obvious lesions in oropharynx. Cardiovascular: Regular rate and rhythm, no murmur, +S1/S2. Respiratory: Lungs are clear to auscultation, respirations unlabored, no crackles, no wheezing. Gastrointestinal: Soft, nontender, non-distended. No guarding or rebound tenderness. Extremities: No edema, no cyanosis, no clubbing. Neuro: Alert and oriented x3.No focal deficits observed. Conversant, moving all extremities. No motor or sensory deficits in bilateral upper or lower extremities. No overt cerebellar signs/incoordination. Cranial nerves 2-12 intact. Psychiatric: Cooperative, appropriate affect Results: Labs 12/04/24 04:35 12/04/24 04:35 Labs: Short CBC 12/03/24 Range/Units 14:57 WBC 8.8 (3.8-10.6) Thou/mm3 Hgb 13.6 (13.5-16.0) g/dL Hct 40.0 L (41.0-53.0) % Plt Count 165 (140-440) Thou/mm3 BMP 12/03/24 14:57 Sodium 144 Potassium 3.8 Chloride 111 H Carbon Dioxide 21.9 BUN 32 H Creatinine 2.0 H Glucose 124 H Calcium 9.1 Cardiac Enzymes 12/03/24 Range/Units 14:57 Troponin I < 0.020 (0.0-0.045) ng/mL Liver Function 12/03/24 Range/Units 14:57 Total Bilirubin 1.3 H (0.3-1.2) mg/dL AST 19 (0-34) U/L ALT 19 (10-49) U/L Alkaline Phosphatase 103 (46-116) U/L Albumin 4.1 (3.4-4.8) gm/dL Urine 12/03/24 Range/Units 15:41 Urine Color Lt-Yellow (Lt Yel-Yel) Urine Clarity Clear (Clear/Hazy) Urine pH 6.5 (5.0-7.0) Ur Specific [place] 1.043 H (1.001-1.035) Urine Protein Negative (Neg - Trace) Urine Glucose (UA) Negative (Negative) Quality Measures Quality Measures stroke Suspected type of Stroke: TIA Last known well (date): 12/03/24 Last known well (time): 13:30 Tenecteplase given: Reason(s) Tenecteplase not given: Stroke severity too mild (non-disabling) not given Rehab services: Speech Language Pathology eval ordered VTE Prophylaxis: pharmaceutical Antithrombotic by day 2:: not indicated (describe) Statin ordered: >75 y/o moderate or high intensity dose Anticoagulation ordered for A-fib or flutter (current or hx): not indicated Advance care planning discussed with:: patient Medications Home Medications and Allergies Home Medications ?Medication ?Instructions ?Recorded ?Confirmed ?Type aspirin 81 mg tablet 81 mg PO DAILY ##0 06/29/12 12/03/24 History atenolol 25 mg tablet 25 mg PO BID ##0 06/29/12 History atorvastatin 40 mg tablet (Lipitor) 40 mg PO QPM ##0 0 06/29/12 12/03/24 History losartan 50 mg tablet (Cozaar) 50 mg PO daily ##0 06/1512/03/24 History cilostazol 50 mg tablet 50 mg PO BID 05/22/21 History tamsulosin 0.4 mg capsule 0.4 mg PO HS 05/22/21 History hydrochlorothiazide 12.5 mg tablet 12.5 mg PO DAILY 12/03/24 History Allergies Allergy/AdvReac Type Severity Reaction Status Date / Time No Known Allergies Allergy Verified 12/03/24 15:16 Visit Medications Acetaminophen (Acetaminophen 325 Mg Tablet) 650 mg PO Q6H PRN PRN Reason: PAIN SCALE 1-3 (mild Stop: 01/02/25 16:40 Enoxaparin Sodium (Enoxaparin Sod Inj 40 Mg/0.4 Ml Syringe) 40 mg SC QPM BETTY Stop: 12/18/24 20:59 Sodium Chloride (Ns) 1,000 mls @ 60 mls/hr IV .[id number] BETTY Stop: 12/05/24 14:44 Last Admin: 12/03/24 16:28 Dose: 60 mls/hr Ondansetron HCl (Ondansetron Inj 2 Mg/Ml Inj 2 Ml) 4 mg IVP Q6H PRN; Protocol PRN Reason: NAUSEA OR VOMITING Stop: 01/02/25 16:35 Discontinued Medications Clopidogrel Bisulfate (Clopidogrel Bisulfate 75 Mg Tablet) 300 mg PO X1 ONE Stop: 12/03/24 15:03 Last Admin: 12/03/24 16:25 Dose: 300 mg Assessment & Plan Plan 84 year old independent male with history of two-vessel bypass surgery, aortic valve replacement in 2011, hypertension, presents to the ED BIBA for evaluation of left upper and lower extremity weakness that lasted 10 mins, admitted for stroke r/o. #Left upper and lower extremity weakness #Stroke r/o Patient reorted episode of left arm and leg weakness where he couldn't support his body weight and glided to the ground but regained strength in about [address] head negative for acute changes. - Stroke/Telemetry Floor - Neuro Checks (Q4) - Bedside Swallow Eval - DVT Prophylaxis - Head of Bed 30 Degrees - Euglycemia and Avoid Hyperthermia (PRN Acetaminophen) - Bolus with Clopidogrel 300 mg bolus x1 and initiate dual antiplatelet therapy with Aspirin 81 mg daily and Clopidogrel 75 mg daily - Antihypertensives PRN if Blood pressure is greater than 220/120 or there is a concern for End organ damage/contraindications for permissive HTN. If blood pressure is greater than 220/120 give labetalol IV 10mg - PRN Zofran 4 mg Q6H for nausea/vomiting - PRN Acitaminophen 650 mg PO Q6H #Hypertension - Holding home meds for permissive hypertension - Labetalol Q6H PRN for BP >220/120 #Hyperlipidemia - Started Atorvastatin 40 mg PO #BPH - Home med tamsulosin 0.4 mg PO Qday Health Maintenance: Code Status: Full DVT Prophylaxis: SCDs, Lovenox GI Prophylaxis: Protonix Diet: Dysphagia 3 Jackman: None Lines: PIV Supplemental O2: None Disposition: Tele, pending stroke r/o Patient seen and care discussed with my attending physician, Dr. Higgins and my senior residents, Dr. Santo and Dr. Darius Garza, [facility] Attending Provider Attestation/Addendum I Aleksandar Campos MD reviewed the note and agree with the resident's assessment & plan with modifications/additions/exceptions as below. I have personally reviewed labs, imaging, home meds/prior records, examined the patient, formulated and discussed management plan with the IM team. An 84-year-old male with history of HTN, CKD, PAD, SAVR, CABG presented with left-sided weakness lasting for a few minutes, admitted for stroke workup. CT head and CTA unremarkable except an atretic vertebral artery. Will obtain MRI brain, echocardiogram, carotid ultrasound to evaluate for vertebral artery steal. Will start on aspirin, statin and Plavix. Neurology is on board, pending recommendations
[2024-12-03] MEDS: ATORVASTATIN CALCIUM 20 MG TABLET 40 MG PO (20:09)
[2024-12-04] VITALS: BP 117/65; PULSE 57; PULSE 59; RESP 18; TEMP 36.6; O2SAT 97
--- NOTE | 2024-12-04 | XR_ITS ---
Examinations: MRI Brain without intravenous contrast. MRA brain without intravenous contrast. MRA carotids without intravenous contrast 3-D vascular reconstructions Date and time of exam: December 04, 2024, 0938 hrs. Indications: Stroke alert yesterday, onset focal neurologic deficit Technique: Multiple axial and sagittal images of the brain have been obtained MRA brain carotid images without contrast obtained, including 3-D postprocessing, vascular maximum intensity projection images Findings: [place] is not enlarged. The optic chiasm and infundibular stalk are not remarkable. Prepontine and interpeduncular cisterns are not enlarged. No localized enlargement of the medulla or yan. Fourth ventricle and cerebellar tonsils normal in position. Subacute hemorrhage is not seen. Fourth ventricle is midline. Mass in the cerebellopontine angle region is not evident. 7th and 8th nerve complexes exhibits symmetry. Globes are symmetrical with no retro-orbital mass. Increased white matter signal moderate Diffusion-weighted images demonstrate no focus of restricted diffusion Mass-effect upon the ventricular system is not identified. MRA carotid images no significant stenoses. MRA brain images no large vessel occlusions Impression: Negative for acute hemorrhage mass effect or midline shift No acute infarct Moderate chronic microvascular white matter change. No cerebral large vessel occlusions
[2024-12-04 04:00] VITALS: BP 129/83; PULSE 59; PULSE 61; RESP 12; TEMP 36.6; O2SAT 97
[2024-12-04 05:27] LABS: Basophils # (Auto) 0.0 Thou/mm3 (0.0-0.2); Basophils % (Auto) 0 % (0-2.5); Eosinophils # (Auto) 0.2 Thou/mm3 (0.0-0.5); Eosinophils % (Auto) 2 % (0-10); Hematocrit 39.7 % (41.0-53.0); Hemoglobin 13.6 g/dL (13.5-16.0); Immature Granulocytes Auto 0.03 Thou/mm3 (0.00-0.00); Lymphocytes # (Auto) 1.6 Thou/mm3 (1.0-4.8); Lymphocytes % (Auto) 20 % (10-50); Mean Corpuscular HGB Conc 34.3 g/dl (31.0-37.0); Mean Corpuscular Hemoglobin 32.5 pg (25.0-35.0); Mean Corpuscular Volume 95 fL (80-100); Monocytes # (Auto) 0.7 Thou/mm3 (0.0-0.8); Monocytes % (Auto) 8 % (0-12); Neutrophils # (Auto) 5.7 Thou/mm3 (1.8-7.7); Neutrophils % (Auto) 69 % (37-80); Nucleated Red Blood Cell # 0.00 Thou/mm3 (0.00-0.00); Nucleated Red Blood Cell % 0 /100 WBC (0); Platelet Count 151 Thou/mm3 (140-440); RDW Standard Deviation 46.0 fL (35.1-43.9); Red Blood Count 4.18 Miln/mm3 (4.50-5.90); White Blood Count 8.2 Thou/mm3 (3.8-10.6)
[2024-12-04 05:45] VITALS: BMI 20.8
[2024-12-04 05:55] LABS: Albumin, Serum 3.9 gm/dL (3.4-4.8); Anion Gap 9 (7-16); BUN/Creatinine Ratio 15 Ratio (12-20); Blood Urea Nitrogen 25 mg/dL (9-23); Calcium 8.8 mg/dL (8.3-10.6); Calcium (Corrected) 8.9 mg/dL (8.5-10.1); Carbon Dioxide 22.0 mMol/L (20.0-31.0); Cardiac Risk Estimate 3.2 RATIO (4.0-6.7); Chloride 110 mMol/L (98-107); Cholesterol 114 mg/dL (132-200); Creatinine (Component) 1.7 mg/dL (0.6-1.3); Estimated Creatinine Clearance 27.7 mL/min (>60); Glucose 100 mg/dL (74-106); HDL Cholesterol 36 mg/dL (40-60); LDL Cholesterol,Calculated 56 mg/dL (0-130); Magnesium 2.2 mg/dL (1.6-2.6); Osmolality,Calculated 285 (275-295); Phosphorous 3.6 mg/dL (2.4-5.1); Potassium 4.0 mMol/L (3.4-5.1); Sodium 141 mMol/L (136-145); Thyroid Stimulating Hormone 0.94 uIU/mL (0.55-4.78); Triglycerides 112 mg/dL (30-150); eGFR 40 See Note
[2024-12-04 05:59] LABS: Glucose Estimated Average 120 mg/dL (80-131); Hemoglobin A1C 5.8 % Hgb (4.8-6.0)
[2024-12-04 08:00] VITALS: BP 145/73; PULSE 66; PULSE 71; RESP 18; TEMP 36.3; O2SAT 96
--- NOTE | 2024-12-04 09:13 | PC.SS ---
Update: Patient to obtain MRI today.
[2024-12-04] MEDS: ASPIRIN EC 81 MG TABEC PO (10:37)
[2024-12-04] MEDS: TAMSULOSIN HCL 0.4 MG CAPSULE PO (10:37)
[2024-12-04] MEDS: SODIUM CHLORIDE 0.9% 1000 ML 1,000 ML 60 ML IV (10:37)
--- NOTE | 2024-12-04 11:00 | PD.RESPRO ---
Documentation for date of: 12/04/24 Exam Vital Signs Temp Pulse Resp BP Pulse Ox O2 Del Method O2 Flow Rate 97.3 F 66 18 145/73 H 96 Room Air 2 12/04/24 08:00 12/04/24 08:00 12/04/24 08:00 12/04/24 08:00 12/04/24 08:00 12/04/24 08:00 12/03/24 16:38 Objective Labs 12/04/24 04:35 12/04/24 04:35 Labs: Laboratory Results - last 24 hr 12/03/24 12/03/24 12/04/24 14:57 15:41 04:35 WBC 8.8 8.2 RBC 4.29 L 4.18 L Hgb 13.6 13.6 Hct 40.0 L 39.7 L MCV 93 95 MCH 31.7 32.5 MCHC 34.0 34.3 RDW Std Deviation 45.9 H 46.0 H Plt Count 165 151 Neut % (Auto) 79 69 Lymph % (Auto) 13 20 Ellis % (Auto) 7 8 Eos % (Auto) 1 2 Baso % (Auto) 0 0 Neut # (Auto) 6.9 5.7 Lymph # (Auto) 1.2 1.6 Ellis # (Auto) 0.6 0.7 Eos # (Auto) 0.1 0.2 Baso # (Auto) 0.0 0.0 Immature Gran # (Auto) 0.02 H 0.03 H Absolute Nucleated RBC 0.00 0.00 Immature Gran % 0 0 Nucleated RBC % 0 0 PT 10.9 INR 1.0 APTT 25.7 Sodium 144 141 Potassium 3.8 4.0 Chloride 111 H 110 H Carbon Dioxide 21.9 22.0 Anion Gap 11 9 BUN 32 H 25 H Creatinine 2.0 H 1.7 H Estim Creat Clear Calc 24.0 L 27.7 L eGFR 33 L 40 L BUN/Creatinine Ratio 16 15 Glucose [address] Glu mg/dL 120 Hemoglobin A1c 5.8 Calculated Osmolality 294 285 Calcium 9.1 8.8 Corrected Calcium 9.1 8.9 Phosphorus 3.6 Magnesium 2.2 2.2 Total Bilirubin 1.3 H AST 19 ALT 19 Alkaline Phosphatase 103 Troponin I < 0.020 B-Natriuretic Peptide 39 Total Protein 6.5 Albumin 4.1 3.9 Globulin 2.4 Albumin/Globulin Ratio 1.7 Triglycerides 112 Cholesterol 114 L LDL Cholesterol, Calc 56 HDL Cholesterol 36 L Cholesterol/HDL Ratio 3.2 L TSH 0.94 Ur Collection Type Catheter Urine Color Lt-Yellow Urine Clarity Clear Urine pH 6.5 Ur Specific [place] 1.043 H Urine Protein Negative Urine Glucose (UA) Negative Urine Ketones Negative Urine Blood Negative Urine Nitrite Negative Urine Bilirubin Negative Urine Urobilinogen (Auto) Negative Ur Leukocyte Esterase Negative Urine RBC 1 Urine WBC < 1 Ur Squamous Epith Cells 0 Urine Bacteria None Urine Opiates Screen Negative Urine Fentanyl Screen Negative Ur Barbiturates Screen Negative U Amphetamin/Meth Scrn Negative U Benzodiazepines Scrn Negative U Cocaine Metab Screen Negative U Marijuana (THC) Screen Negative Ethyl Alcohol < 3.0 Quality Measures Quality Measures stroke Suspected type of Stroke: TIA Last known well (date): 12/03/24 Last known well (time): 13:30 Tenecteplase given: Reason(s) Tenecteplase not given: Stroke severity too mild (non-disabling) not given Assessment & Plan Assessment Current Active Medications: Generic Name Dose Route Start Last Admin Trade Name Freq PRN Reason Stop Dose Admin Acetaminophen 650 mg 12/03/24 16:41 Acetaminophen 325 Mg Tablet PO 01/02/25 16:40 Q6H PRN PAIN SCALE 1-3 (mild Aspirin 81 mg 12/04/24 09:00 12/04/24 10:37 Aspirin Ec 81 Mg Tabec PO 01/03/25 08:59 81 mg QDAY BETTY Administration Atorvastatin Calcium 40 mg 12/03/24 21:00 12/03/24 20:09 Atorvastatin Calcium 20 Mg Tablet PO 01/02/25 20:59 40 mg HS BETTY Administration Enoxaparin Sodium 40 mg 12/04/24 21:00 Enoxaparin Sod Inj 40 Mg/0.4 Ml Syringe SC 12/18/24 20:59 QPM BETTY Sodium Chloride 1,000 mls @ 60 mls/hr 12/03/24 14:45 12/04/24 10:37 Ns IV 12/05/24 14:44 60 mls/hr .[id number] BETTY Administration Labetalol HCl 10 mg 12/03/24 18:26 Labetalol Inj 5 Mg/Ml Vial 20 Ml IVP 01/02/25 18:29 Q6H PRN Blood pressure >220/120 Ondansetron HCl 4 mg 12/03/24 16:36 Ondansetron Inj 2 Mg/Ml Inj 2 Ml IVP 01/02/25 16:35 Q6H PRN NAUSEA OR VOMITING Protocol Tamsulosin HCl 0.4 mg 12/04/24 09:00 12/04/24 10:37 Tamsulosin Hcl 0.4 Mg Capsule PO 01/03/25 08:59 0.4 mg QDAY BETTY Administration Plan ? Stroke/Telemetry Floor ? Neuro Checks (Q4) ? Bedside Swallow Eval ? DVT Prophylaxis ? IV Fluids, Normal Saline ? Head of Bed 30 Degrees ? Euglycemia and Avoid Hyperthermia (PRN Acetaminophen) ? Bolus with Clopidogrel 300 mg bolus x1 and initiate dual antiplatelet therapy with Aspirin 81 mg daily and Clopidogrel 75 mg daily ? Antihypertensives PRN if Blood pressure is greater than 220/120 or there is a concern for End organ damage/contraindications for permissive HTN. If blood pressure is greater than 220/120 give labetalol PO or IV or Vasotec IV with a goal of 15% reduction in BP during the first 24 hours. ?Routine MRI Brain without contrast to assess for stroke ?TTE (if not recently done) ?Lipid Profile, A1C ?PT/OT, Speech/Swallow evaluation
--- NOTE | 2024-12-04 11:53 | PC.SS ---
CAMP ADVISOR conducted bedside contact with the patient conduct initial assessment and to discuss discharge planning.? Patient confirmed demographic information.? Patient resides alone at home.? Patient is retired.? Patient does not utilize any form of DME to assist with ambulation.? Patient does not utilize home oxygen.? Patient describes the ability to complete ADL?s independently. ?Patient still possesses the ability to operate motor vehicle. ?Patient identified son, Francisco Javier Alvarado ; as medical surrogate decision maker.? Patient?s PCP is Dr. Moss.? Patient?s facilities operations technician is Dr. Ho.? Patient does not participate with dialysis.? Patient utilizes [facility] for medication services.? Patient confirmed access to appropriate provisions and basic utilities. Plan is for the patient to return home at the time of discharge.? Family will provide transportation on behalf of the patient.? No further discharge needs identified by the patient.? No further intervention required at this time, social worker palliative care will be available to address any further concerns.? Next of Kin: Francisco Javier Alvarado D/C Plan: Home
[2024-12-04 12:00] VITALS: BP 147/80; PULSE 57; PULSE 58; RESP 16; TEMP 36.3; O2SAT 95
--- NOTE | 2024-12-04 15:34 | ESDS_ITS ---
<Statement entered by Dwight Acuna MD - 12/04/24 16:01> Note reviewed and agree with care plan as documented. Please refer to the note below for further details. Plan discussed with attending physician Dr. Andres Acuna MD PGY-2 Internal Medicine Planned Discharge Date 12/04/24 DS: Providers Provider Date of admission: 12/03/24 16:02 Primary care physician: Physician No Primary/Family Admitting Provider: Aleksandar Campos MD Attending Provider on Admission: Aleksandar Campos MD Consults: 12/03/24 14:44 Consult to Neurology / Tele-Neurology Routine Comment: Consulting Provider: [facility] 12/03/24 18:17 Consult to Neurology / Tele-Neurology Routine Comment: Consulting Provider: Joseluis Escalera Referral Physical Therapy Routine Comment: Physician Instructions: 12/03/24 18:18 Referral Speech Therapy Routine Comment: Attending Provider on DC: Dwight Acuna MD Discharging Provider: Dwight Acuna MD DS: Diagnosis Problem List Completed Was Problem List Reviewed/Reconciled?: Yes Hospital Course Hospital Course Hospital course: 84 year old independent male with history of two-vessel bypass surgery, aortic valve replacement in 2011, hypertension, presents to the ED BIBA on 12/03/2024 for evaluation of weakness beginning at ~ 13:44h. Patient was getting out of his truck when he noticed weakness in his left arm and leg. He couldn't support his body weight and slowly slid to the ground. Denied a hard fall, and did not hit his head. Patient regained his strength on the left side in about 10 minutes On physical exam, patient exhibited equal strength bilaterally without any residual neurologic deficits. CN II to XII intact. Sensation intact to gross touch throughout C6-T1 and L2-S1 dermatomes bilaterally. Vital signs and labs within normal limits. Patient was initiated with DAPT, given bolus clopidogrel 300 mg x 1, and started with aspirin 81 mg and clopidogrel 75 mg daily for possible TIA. Teleneurology was consulted and patient was left in permissive hypertension. CT head negative for acute changes. MRI with MRA also negative for acute hemorrhage, mass effect, or midline shift. Moderate chronic microvascular white matter change. No LVO. At the time of discharge, patient is medically stable and deemed safe to return to his/her previous state of living. Status at Discharge Cognitive/behavioral status at discharge: stable Overall status at discharge: patient is back to baseline Time Spent with Patient Time attestation: Total time spent providing and/or coordinating discharge services: More than 50% of the patient's total hospital stay Time spent: Greater than 30 minutes Exam Vital Signs Temp Pulse Resp BP Pulse Ox O2 Del Method O2 Flow Rate 97.4 F 57 L 16 147/80 H 95 Room Air 2 12/04/24 12:00 12/04/24 12:12/04/24 12:12/04/24 12:12/04/24 12:12/04/24 12:12/03/24 16:38 Narrative Exam Gen: Alert, no acute distress. Pleasantly conversational and non-toxic appearing. Skin: Nomral skin turgor, no rash, ecchymoses, and no signs of cyanosis. HEENT: Normocephalic, atraumatic.? Normal conjunctiva, PERRL. Dry oral mucosa. No obvious lesions in oropharynx. Cardiovascular: Regular rate and rhythm, no murmur, +S1/S2. Respiratory: Lungs are clear to auscultation, respirations unlabored, no crac kles, no wheezing. Gastrointestinal: Soft, nontender, non-distended. No guarding or rebound tenderness. Extremities: No edema, no cyanosis, no clubbing. Neuro: Alert and oriented x3.No focal deficits observed. Conversant, moving all extremities. No motor or sensory deficits in bilateral upper or lower extremities. No overt cerebellar signs/incoordination. Cranial nerves 2-12 intact. Psychiatric: Cooperative, appropriate affect Discharge Plan Plan Patient Disposition: HOME (Self Care) Patient condition on transfer: Stable Care Plan Goals: * Follow-up with PCP within 1-2 weeks of discharge. 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 Your nut cracker would evaluate the indication for an echocardiogram. * Strat Plavix 75mg daily for three weeks. Continue to take aspirin 81mg daily and atorvastatin 40mg daily. * You may follow-up with one of our residents doctor with the [facility] at the address below. * Continue taking medications as prescribed below. * Return to Emergency Room if symptoms persist, worsen, or new symptoms develop. [facility] [address] [place] [address] Prescriptions/Referrals Prescriptions/Med Rec: New clopidogrel 75 mg tablet 75 mg PO QDAY 21 Days Qty: 21 0RF Continued losartan [Cozaar] 50 MG tablet 50 mg PO daily Qty: 0 atorvastatin [Lipitor] 40 MG tablet 40 mg PO QPM Qty: 0 atenolol 25 MG tablet 25 mg PO BID Qty: 0 aspirin 81 MG tablet 81 mg PO DAILY Qty: 0 cilostazol 50 mg Tablet 50 mg PO BID tamsulosin 0.4 mg Capsule 0.4 mg PO HS hydrochlorothiazide 12.5 mg tablet 12.5 mg PO DAILY Patient Comments: TAKE 1 TABLET BY MOUTH EVERY DAY Discontinued tamsulosin [Flomax] 0.4 mg Capsule 0.4 mg PO QDAY Referrals: No Primary/Family,Physician [Primary Care Provider] Patient/Caregiver Discharge Instructions Education Materials: Duplex Ultrasound: What to Expect, What Is a TIA?, ED TIA: Transient Ischemic Attack Print Language: Greek Stand Alone Forms: Jazmine Award Info., Patient Portal Info Letter Discharge Order Discharge Orders: Discharge (Routine); Ordered 12/04/24 Ordered By: Dwight Mccoy Wvdavid Quality Discharge Quality Measures VTE prophylaxis Attestestation Attestation I Aleksandar Campos MD reviewed the note and agree with the resident's assessment & plan with modifications/additions/exceptions as below. I have personally reviewed labs, imaging, home meds/prior records, examined the patient, formulated and discussed management plan with the IM team. An 84-year-old male with history of HTN, CKD, PAD, SAVR, CABG presented with left-sided weakness lasting for a few minutes, admitted for stroke workup. CT head and CTA unremarkable except an atretic vertebral artery. MRI brain did reveal chronic microvascular changes. Patient likely has TIA for which we will continue aspirin, statin therapy and 3 weeks of Plavix therapy. Echocardiogram and carotid ultrasound to evaluate for vertebral artery steal can be done in outpatient with cardiology. Patient wishes to go home as he is feeling completely fine, neurology agreed for discharge planning.
[2024-12-04 16:00] VITALS: BP 146/79; PULSE 60; RESP 15; TEMP 36.1; O2SAT 93
== END 2024-12-04 16:24 | disposition home or self-care (01) | DRG 69 ==
LOC: SERX 14:54 → SERHOLD 16:05 → S2NX 17:54
PROVIDERS: Admitting Provider Student in an Organized Health Care Education/Training Program; Emergency Provider Family Medicine; Visit Provider Student in an Organized Health Care Education/Training Program
DX: G45.9 Transient cerebral ischemic attack, unspecified (principal); I25.10 Atherosclerotic heart disease of native coronary artery without angina pectoris; E78.5 Hyperlipidemia, unspecified; N40.0 Benign prostatic hyperplasia without lower urinary tract symptoms; I12.9 Hypertensive chronic kidney disease with stage 1 through stage 4 chronic kidney disease, or unspecified chronic kidney disease; N18.9 Chronic kidney disease, unspecified; Z95.2 Presence of prosthetic heart valve; W19.XXXA Unspecified fall, initial encounter; Z95.1 Presence of aortocoronary bypass graft
CPT/HCPCS: 36415; 70450; 70496; 70498; 70544; 80053; 80061; 80069; 80307; 80320; 81001; 83036; 83735; 83880; 84443; 84484; 85025; 85610; 85730; 87811; 92610; 93005; 96360; 96361; 99285; A4649; J7030; Q9967; A9270; G0480

== ENCOUNTER 2024-12-24 12:57 | Outpatient (AMB) | payer MEDICARE, MEDICAID, SELFPAY ==
--- NOTE | 2024-12-24 13:29 | PD.RESCLINIC ---
Vital Signs 12/24/24 13:30 Height 1.68 m Height Method Stated Weight 70.364 kg Weight Measurement Method Standing Scale BMI 25.0 BP 112/73 Blood Pressure Source Automatic Cuff Blood Pressure Location Right Upper Arm Position Sitting Respiration 16 Pulse 70 Pulse Source Monitor Temp 97.6 F Temp Source Temporal Artery Scan Pulse Oximetry (%) 92 L Oxygen Delivery Method Room Air Allergies/Meds Allergies & Medications Allergies No Known Allergies Allergy (Verified 12/24/24 13:31) Medication Reconciliation clopidogrel 75 mg tablet 75 mg PO QDAY 21 days #21 tabs 12/04/24 [Rx Confirmed 12/24/24] aspirin 81 mg tablet 81 mg PO DAILY 1 month #30 tabs 12/24/24 [Rx] atenolol 25 mg tablet 25 mg PO BID 1 month #60 tabs 12/24/24 [Rx] atorvastatin 40 mg tablet (Lipitor) 40 mg PO QPM ##0 12/24/24 [History Confirmed 12/24/24] cilostazol 50 mg tablet 50 mg PO BID 12/24/24 [History Confirmed 12/24/24] hydrochlorothiazide 12.5 mg tablet 12.5 mg PO DAILY 1 month #30 tabs 12/24/24 [Rx] losartan 50 mg tablet (Cozaar) 50 mg PO daily 1 month #30 tabs 12/24/24 [Rx] tamsulosin 0.4 mg capsule 0.4 mg PO HS 1 month #30 caps 12/24/24 [Rx] MA Intake Visit Data Collection Pain scale:: 0 PCP or OBGYN visit in last 3 months: No Smoking Status Smoking Status: Former smoker Immunization / Flu Flu Vaccine in the Last 12 Months: No Flu Vaccine Exclusion Criteria: No Exclusion Criteria Past Medical History Past Medical History NEUROLOGIC: Negative Neurological Disorders CARDIAC: Positive Cardiac Disorders, Cardiac Arrhythmia, Coronary Artery Disease (VALVE REPLACEMENT), Atherosclerotic Heart Disease, Edema and Hypertension; Negative Angina, Aneurysm or Congestive Heart Failure RESPIRATORY: Negative Chronic Obstructive Pulmonary Disease (COPD) GASTROINTESTINAL: Positive Gastrointestinal Disorders GENITOURINARY: Positive Genitourinary Disorders; Negative Renal Disease ENT: Positive Deafness; Negative Cataracts, Glaucoma, Blind, Retinal Detachment or Macular Degeneration ENDOCRINE: Negative Endocrine Disorders, Diabetes Mellitus Type 1 or Diabetes Mellitus Type 2 HEMATOLOGIC: Negative Blood Disorders OTHER HISTORY: Negative Autoimmune Disease, Falls, Blood Transfusions, Anesthesia Reactions, Organ Transplant, MRSA, VRSA, Vancomycin-Resistant Enterococci, Clostridium Difficile or Cancer Family History FAMILY HISTORY: Positive Family Cancer; Negative Family Anesthesia Reaction Surgical History SURGICAL: Positive Coronary Artery Bypass Graft and Valve Replacement; Negative Pacemaker, Thyroidectomy or Organ Transplant Social History SMOKING STATUS: Smoking status: Former smoker ALCOHOL: Alcohol Intake: Former ALCOHOL FREQUENCY: Alcohol Intake Frequency: holidays/special occasions only HOUSING: Housing: House LIVES WITH: Lives With: Alone Patient Portal Ed[employer] Social History Living Situation History Housing: House Tobacco History Smoking Status: Former smoker Alcohol History Alcohol Intake: Former Alcohol Intake Frequency: holidays/special occasions only Alcohol Intake Frequency Other:: Occassional Review of Systems Report any current symptoms Only answer those that you have currently: Past Medical History Past Medical History Have you ever been diagnosed with any of the following: Cardiology Problems Cardiac Arrhythmia: Yes Angina: No Coronary Artery Disease: Yes (VALVE REPLACEMENT) Atherosclerotic Heart Disease: Yes Aneurysm: No Congestive Heart Failure: No Edema: Yes Hypertension: Yes Respiratory Problems Chronic Obstructive Pulmonary Disease (COPD): No Genital/Urinary Problems Renal Disease: No Head,Eye,Nose,Throat Problems Cataracts: No Glaucoma: No Blind: No Retinal Detachment: No Macular Degeneration: No Deafness: Yes Endocrine Problems Diabetes Mellitus Type 1: No Diabetes Mellitus Type 2: No Other Problems Autoimmune Disease: No Falls: No Blood Transfusions: No Anesthesia Reactions: No Organ Transplant: No MRSA: No VRSA: No Vancomycin-Resistant Enterococci: No Clostridium Difficile: No Cancer: No Surgical History Coronary Artery Bypass Graft: Yes Valve Replacement: Yes Pacemaker: No Thyroidectomy: No History of Present Illness HPI Narrative Mr. Alvarado is a 84 year old male with HTL,HLD, CKD, PAD, SAVR, CAD s/p CABG with recent hospitalization on 12/03/2024 with presentation of left-side weakness lasting for few minutes, admitted for stroke workup. CT head and CTA unremarkable except an atretic vertebral artery found. Neurology was consulted patient was started on Plavix 75 mg for 3 weeks. 12/24/2024 The patient presents today for hospital follow-up visit however no active complaint. He states that he followed up with safety consultant Dr. Little outpatient few days after discharge. Reports an upcoming outpatient follow-up in [address] Little. The patient reports no medication intolerance and is nearly finished with his Plavix course. He denies chest pain, palpitation, abdominal pain, nausea, changes in bowel habit, dysuria, urinary frequency or urgency, generalized weakness Review of Systems Review of Systems Systems Reviewed: All systems reviewed, normal except as documented Objective/Exam General Limitations: no limitations General Appearance: alert, in no apparent distress, cooperative, healthy appearing and well groomed ENT ENT exam: Present normal exam, normal oropharynx and mucous membranes moist Chest Chest inspection: Present normal inspection and symmetric chest wall rise Resp Respiratory exam: Present normal lung sounds bilaterally Card Cardiovascular exam: Present regular rate, normal rhythm, normal heart sounds, +S1 and +S2 Abdominal Abdominal exam: Present soft and normal bowel sounds Extremities Extremities exam: Present normal inspection, full ROM and normal capillary refill Neuro Neurological exam: Present alert, oriented X3, CN II-XII intact and reflexes normal Assessment & Plan Diagnosis / Problem List (1) Hypertension: Status: Acute Assessment & Plan: Patient has hx hypertension which is well-controlled and compliant with medication. Plan: - Continue with losartan 50mg PO Daily - Continue with atenolol 25mg PO - Continue with HCTZ 12.5 mg PO daily - refill home medications (2) PAD (peripheral artery disease): Status: Acute Assessment & Plan: Patient reports improve claudication symptoms with medications. Plan: - Continue wit Cilostazol 0.4 mg (3) TIA (transient ischemic attack): Status: Acute Assessment & Plan: Per hospital admission CT head and CTA unremarkable except an atretic vertebral artery. MRI brain did reveal chronic microvascular changes. Given gthe acute left sided weakness that resolve and imaging findings patient likely has TIA.Was sent home with 3 weeks of Plavix therapy. Plan: -Continue aspirin 81 mg -Continue atorvastatin 40 mg - Follow with with PCP Dr. Moss in 1 week. - Has upcoming appointment with cardiology Dr. Little 3 weeks Additional Assessment Patient assessed under supervision of attending physician Dr.Buttan Irene Meza MD PGY-1, Internal Medicine Please note: this document was transcribed using voice recognition technology; minor inaccuracies may be present. Advanced Care Planning Advance care planning discussed with:: patient Office Procedures [facility] Level of Care Nursing/Assessment Patient Status: Established Patient Nursing Assessment/Reassessment: Medication Reconciliation, Update PMH in EMR and Vital Signs Coordination of Care: Complex Care and Chronic Disease 1-5, Education Complex Pt/Fam, Lab and Imaging orders, Ref for ancillary service, Results/Orders obtained and Staff clarify orders Established Patient Charge Established Patient Point Assignment: 125 Established Patient Point Charge: EP Level 4 (120-155)
[2024-12-24 13:30] VITALS: BP 112/73; PULSE 70; RESP 16; TEMP 36.4; O2SAT 92; BMI 25.0
--- NOTE | 2024-12-24 13:41 | PD.RESCLINIC ---
Vital Signs 12/24/24 13:30 Height 1.68 m Height Method Stated Weight 70.364 kg Weight Measurement Method Standing Scale BMI 25.0 BP 112/73 Blood Pressure Source Automatic Cuff Blood Pressure Location Right Upper Arm Position Sitting Respiration 16 Pulse 70 Pulse Source Monitor Temp 97.6 F Temp Source Temporal Artery Scan Pulse Oximetry (%) 92 L Oxygen Delivery Method Room Air Allergies/Meds Allergies & Medications Allergies No Known Allergies Allergy (Verified 12/24/24 13:31) Medication Reconciliation aspirin 81 mg tablet 81 mg PO DAILY ##0 06/29/12 [History Confirmed 12/24/24] atenolol 25 mg tablet 25 mg PO BID ##0 06/29/12 [History Confirmed 12/24/24] atorvastatin 40 mg tablet (Lipitor) 40 mg PO QPM ##0 06/29/12 [History Confirmed 12/24/24] losartan 50 mg tablet (Cozaar) 50 mg PO daily ##0 06/29/12 [History Confirmed 12/24/24] cilostazol 50 mg tablet 50 mg PO BID 05/22/21 [History Confirmed 12/24/24] tamsulosin 0.4 mg capsule 0.4 mg PO HS 05/22/21 [History Confirmed 12/24/24] hydrochlorothiazide 12.5 mg tablet 12.5 mg PO DAILY 12/03/24 [History Confirmed 12/24/24] clopidogrel 75 mg tablet 75 mg PO QDAY 21 days #21 tabs 12/04/24 [Rx Confirmed 12/24/24] MA Intake Smoking Status Smoking Status: Former smoker Past Medical History Past Medical History NEUROLOGIC: Negative Neurological Disorders CARDIAC: Positive Cardiac Disorders, Cardiac Arrhythmia, Coronary Artery Disease (VALVE REPLACEMENT), Atherosclerotic Heart Disease, Edema and Hypertension; Negative Angina, Aneurysm or Congestive Heart Failure RESPIRATORY: Negative Chronic Obstructive Pulmonary Disease (COPD) GASTROINTESTINAL: Positive Gastrointestinal Disorders GENITOURINARY: Positive Genitourinary Disorders; Negative Renal Disease ENT: Positive Deafness; Negative Cataracts, Glaucoma, Blind, Retinal Detachment or Macular Degeneration ENDOCRINE: Negative Endocrine Disorders, Diabetes Mellitus Type 1 or Diabetes Mellitus Type 2 HEMATOLOGIC: Negative Blood Disorders OTHER HISTORY: Negative Autoimmune Disease, Falls, Blood Transfusions, Anesthesia Reactions, Organ Transplant, MRSA, VRSA, Vancomycin-Resistant Enterococci, Clostridium Difficile or Cancer Family History FAMILY HISTORY: Positive Family Cancer; Negative Family Anesthesia Reaction Surgical History SURGICAL: Positive Coronary Artery Bypass Graft and Valve Replacement; Negative Pacemaker, Thyroidectomy or Organ Transplant Social History SMOKING STATUS: Smoking status: Former smoker ALCOHOL: Alcohol Intake: Former ALCOHOL FREQUENCY: Alcohol Intake Frequency: holidays/special occasions only HOUSING: Housing: House LIVES WITH: Lives With: Alone Patient Portal [employer] Social History Living Situation History Housing: House Tobacco History Smoking Status: Former smoker Alcohol History Alcohol Intake: Former Alcohol Intake Frequency: holidays/special occasions only Alcohol Intake Frequency Other:: Occassional Review of Systems Report any current symptoms Only answer those that you have currently: Past Medical History Past Medical History Have you ever been diagnosed with any of the following: Cardiology Problems Cardiac Arrhythmia: Yes Angina: No Coronary Artery Disease: Yes (VALVE REPLACEMENT) Atherosclerotic Heart Disease: Yes Aneurysm: No Congestive Heart Failure: No Edema: Yes Hypertension: Yes Respiratory Problems Chronic Obstructive Pulmonary Disease (COPD): No Genital/Urinary Problems Renal Disease: No Head,Eye,Nose,Throat Problems Cataracts: No Glaucoma: No Blind: No Retinal Detachment: No Macular Degeneration: No Deafness: Yes Endocrine Problems Diabetes Mellitus Type 1: No Diabetes Mellitus Type 2: No Other Problems Autoimmune Disease: No Falls: No Blood Transfusions: No Anesthesia Reactions: No Organ Transplant: No MRSA: No VRSA: No Vancomycin-Resistant Enterococci: No Clostridium Difficile: No Cancer: No Surgical History Coronary Artery Bypass Graft: Yes Valve Replacement: Yes Pacemaker: No Thyroidectomy: No History of Present Illness HPI Narrative Interval History:12/24/2024 Office Procedures [facility] Level of Care Nursing/Assessment Patient Status: Established Patient Nursing Assessment/Reassessment: Medication Reconciliation, Update PMH in EMR and Vital Signs Coordination of Care: Complex Care and Chronic Disease 1-5, Education Complex Pt/Fam, Lab and Imaging orders, Ref for ancillary service, Results/Orders obtained and Staff clarify orders Established Patient Charge Established Patient Point Assignment: 125 Established Patient Point Charge: Level 4 (120155)
== END 2024-12-24 13:40 | disposition home or self-care (01) ==
LOC: HODAHC 12:57
PROVIDERS: Supervising Provider Internal Medicine
DX: G45.9 Transient cerebral ischemic attack, unspecified (principal); I73.9 Peripheral vascular disease, unspecified; N40.0 Benign prostatic hyperplasia without lower urinary tract symptoms; Z79.82 Long term (current) use of aspirin; I12.9 Hypertensive chronic kidney disease with stage 1 through stage 4 chronic kidney disease, or unspecified chronic kidney disease; N18.9 Chronic kidney disease, unspecified; E78.5 Hyperlipidemia, unspecified; I25.10 Atherosclerotic heart disease of native coronary artery without angina pectoris; Z95.1 Presence of aortocoronary bypass graft
CPT/HCPCS: 99214; G0463

== ENCOUNTER 2025-01-13 09:00 | Outpatient (RCR) | payer MEDICARE, MEDICAID, SELFPAY ==
--- NOTE | 2025-01-04 14:26 | PTNOTE_ITS ---
PT OP Initial Eval Patient Information Outpatient Physical Therapy Treatment Date: 01/04/25 Visit Reasons: RIGHT HAND INJURY Medical Diagnosis: Right Hand Pain; Right Hand Injury Treatment Dx #1: Right Hand Weakness Treatment Dx #2: Right Hand Pain Start of Care: 01/04/25 Date of Onset: 12/05/24 Smoking Status Smoking Status: Never smoker Initial Assessment Subjective: Pt is a 84 y/o male reports of right hand pain and weakness s/p horse stepping on the hand. Pt had did get a few stitches in the ER. Pt still has pain (5/10) with activities. Pt has limitation with gripping, lifting, chores, self care, yardwork, work duties, and performing recreational activities. Objective: Right Wrist AROM: all motions are WNL Right Wrist MMTs: grossly 4-/5 Purchase Price Analyst Strength L: 85 lbs R: 60 lbs Assessment: Pt demonstrate right hand weakness s/p injury leading to difficulty with ADLs. Pt will benefit from physical therapy to increase ROM, strength, and work on hand dexterity. 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
--- NOTE | 2025-01-07 15:40 | PTNOTE_ITS ---
PT Outpatient Daily Note OP Daily Note Outpatient Physical Therapy Treatment Date: 01/07/25 Visit Reasons: RIGHT HAND INJURY Subjective: Pt reports he has been doing stretches at home for R hand to be able to make a fist. Objective: Please see flow sheet for ther ex list. Assessment: Interventions completed with good tolerance. Plan: Continue with poC. Length of Time (minutes) of Treatment: 30 Minutes PRODUCT DEVELOPMENT CONSULTANT Service Modifier Method I: Divide the number of min of care provided by the PRODUCT DEVELOPMENT CONSULTANT/KELSEA by the total min of care provided then multiply by 100. If greater than 11 percent modifier is required. Method II: Divide the total time of care provided to patient by 10 (round to the nearest whole number) and add 1 min. to set the minimum time requirement. If treatment total was 60 min., then 10% of 6 min PT CQ modifier applied: CQ Modifier applied Procedure Charges Therapeutic Exercise 30 minutes: Yes
--- NOTE | 2025-01-11 09:19 | PT.ODAYNRPT ---
PT Outpatient Daily Note OP Daily Note Outpatient Physical Therapy Treatment Date: 01/11/25 Visit Reasons: RIGHT HAND INJURY Subjective: Pt's hand continues to hurt and feels weak. Pt mentioned hand felt sore after last session. Objective: Please see flow chart for list of ther ex performed Assessment: added sci fit today with good tolerance. Pt reports of fatigue post PT session Plan: Continue with PT Length of Time (minutes) of Treatment: 30 Minutes Procedure Charges Therapeutic Exercise 30 minutes: Yes
--- NOTE | 2025-01-13 09:03 | PT.ODAYNRPT ---
PT Outpatient Daily Note OP Daily Note Outpatient Physical Therapy Treatment Date: 01/13/25 Visit Reasons: RIGHT HAND INJURY Subjective: Pt's hand feels sore after last session. Pt does not have any new concerns to report. Objective: Please see flow chart for list of ther ex performed Assessment: progressing with hand exercises and increase reps to 25x with good tolerance Plan: Continue with PT Length of Time (minutes) of Treatment: 30 Minutes Procedure Charges Therapeutic Exercise 30 minutes: Yes
== END 2025-01-14 23:59 | disposition home or self-care (01) ==
LOC: CPTX 09:00
DX: M79.641 Pain in right hand (principal); R53.1 Weakness; S69.91XD Unspecified injury of right wrist, hand and finger(s), subsequent encounter; W55.12XD Struck by horse, subsequent encounter
CPT/HCPCS: 97110; 97162

== ENCOUNTER 2025-02-08 14:30 | Outpatient (RCR) | payer MEDICARE, MEDICAID, SELFPAY ==
--- NOTE | 2025-01-18 09:53 | PTNOTE_ITS ---
PT Outpatient Daily Note OP Daily Note Outpatient Physical Therapy Treatment Date: 01/18/25 Visit Reasons: right hand injury Subjective: Pt reports hand is progressing but can not separate fingers much because of scar. Pt mention that he has an appointment with specialist this Friday. Objective: Please see flow sheet for ther ex list. Assessment: Focus on restoring functional strength and ROM. Plan: Continue with pOC. Length of Time (minutes) of Treatment: 30 Minutes APPEALS AND GENERALIST CLERK Service Modifier Method I: Divide the number of min of care provided by the APPEALS AND GENERALIST CLERK/KELSEA by the total min of care provided then multiply by 100. If greater than 11 percent modifier is required. Method II: Divide the total time of care provided to patient by 10 (round to the nearest whole number) and add 1 min. to set the minimum time requirement. If treatment total was 60 min., then 10% of 6 min PT CQ modifier applied: CQ Modifier applied Procedure Charges Therapeutic Exercise 30 minutes: Yes
--- NOTE | 2025-01-20 09:13 | PTNOTE_ITS ---
PT Outpatient Daily Note OP Daily Note Outpatient Physical Therapy Treatment Date: 01/20/25 Visit Reasons: right hand injury Subjective: Pt reports R hand is doing better but the only thing that is limiting him most is the location of the scar that prevents him from being able to separate his fingers. Objective: Please see flow sheet for ther e xlist. Assessment: Continued focus on restoring strength and functional mobility so pt can perform ADLs with less difficulty. Plan: Continue with POC. Length of Time (minutes) of Treatment: 30 Minutes SHUTTLE BUGGY OPERATOR Service Modifier Method I: Divide the number of min of care provided by the SHUTTLE BUGGY OPERATOR/KELSEA by the total min of care provided then multiply by 100. If greater than 11 percent modifier is required. Method II: Divide the total time of care provided to patient by 10 (round to the nearest whole number) and add 1 min. to set the minimum time requirement. If treatment total was 60 min., then 10% of 6 min PT CQ modifier applied: CQ Modifier applied Procedure Charges Therapeutic Exercise 30 minutes: Yes
--- NOTE | 2025-01-26 09:59 | PTNOTE_ITS ---
PT Outpatient Daily Note OP Daily Note Outpatient Physical Therapy Treatment Date: 01/26/25 Visit Reasons: right hand injury Subjective: Pt reports progress but still can not bend pinky all the way like he can with L hand. Objective: Please see flow sheet for ther ex list. Assessment: Performed PROM to fifth digit into flexion and scar mobs, pt tolerated well. Plan: Continue with POC. Length of Time (minutes) of Treatment: 30 Minutes CORRECTIONAL CAPTAIN Service Modifier Method I: Divide the number of min of care provided by the CORRECTIONAL CAPTAIN/KELSEA by the total min of care provided then multiply by 100. If greater than 11 percent modifier is required. Method II: Divide the total time of care provided to patient by 10 (round to the nearest whole number) and add 1 min. to set the minimum time requirement. If treatment total was 60 min., then 10% of 6 min PT CQ modifier applied: CQ Modifier applied Procedure Charges Therapeutic Exercise 30 minutes: Yes
--- NOTE | 2025-01-28 14:51 | PT.ODAYNRPT ---
PT Outpatient Daily Note OP Daily Note Outpatient Physical Therapy Treatment Date: 01/28/25 Visit Reasons: right hand injury Subjective: Pt reports R hand is progressing. Objective: Please see flow sheet for ther ex list. R SHAKIR score 68lbs. Assessment: Foot Tender strength improving indicated by above measurements. Plan: Continue with poC. Length of Time (minutes) of Treatment: 30 Minutes GOLF CLUB HEAD INSPECTOR AND ADJUSTER Service Modifier Method I: Divide the number of min of care provided by the GOLF CLUB HEAD INSPECTOR AND ADJUSTER/KELSEA by the total min of care provided then multiply by 100. If greater than 11 percent modifier is required. Method II: Divide the total time of care provided to patient by 10 (round to the nearest whole number) and add 1 min. to set the minimum time requirement. If treatment total was 60 min., then 10% of 6 min PT CQ modifier applied: CQ Modifier applied Procedure Charges Therapeutic Exercise 30 minutes: Yes
--- NOTE | 2025-02-02 13:49 | PT.ODAYNRPT ---
PT Outpatient Daily Note OP Daily Note Outpatient Physical Therapy Treatment Date: 02/02/25 Visit Reasons: right hand injury Subjective: Pt's hand is better. Pt will be seeing surgeon on friday to determine if he needs another surgery to split the skin webbing on the hand. Objective: Please see flow chart for list of ther ex performed Assessment: advance patient to mostly green resistance with good from except for digiflex due to inability to completely squeeze all springs Plan: Continue with PT Length of Time (minutes) of Treatment: 30 Minutes Procedure Charges Therapeutic Exercise 30 minutes: Yes
--- NOTE | 2025-02-08 15:04 | PTNOTE_ITS ---
PT Outpatient Daily Note OP Daily Note Outpatient Physical Therapy Treatment Date: 02/08/25 Visit Reasons: right hand injury Subjective: Pt reports R hand is doing better but feels it is his scar that limits him the most. Pt had an appointment with a specialist and let pt know that specialist will not do anything to his hand at this time wants to see him in 3 months. Objective: Please see flow sheet for ther ex lsit. Assessment: Pt demonstrates good tolerance with strengthening interventions. Plan: Continue with pOC. Length of Time (minutes) of Treatment: 30 Minutes VENDING TECHNICIAN Service Modifier Method I: Divide the number of min of care provided by the VENDING TECHNICIAN/GRAIN OILSEED OR PASTURE FARM WORKER by the total min of care provided then multiply by 100. If greater than 11 percent modifier is required. Method II: Divide the total time of care provided to patient by 10 (round to the nearest whole number) and add 1 min. to set the minimum time requirement. If treatment total was 60 min., then 10% of 6 min PT CQ modifier applied: CQ Modifier applied Procedure Charges Therapeutic Exercise 30 minutes: Yes
== END 2025-02-13 23:59 | disposition home or self-care (01) ==
LOC: CPTX 14:30
DX: M79.641 Pain in right hand (principal); R53.1 Weakness; S69.81XD Other specified injuries of right wrist, hand and finger(s), subsequent encounter; W55.12XD Struck by horse, subsequent encounter
CPT/HCPCS: 97110

== ENCOUNTER 2025-02-21 10:00 | Outpatient (RCR) | payer MEDICARE, MEDICAID, SELFPAY ==
--- NOTE | 2025-02-16 09:24 | PT.ODAYNRPT ---
PT Outpatient Daily Note OP Daily Note Outpatient Physical Therapy Treatment Date: 02/16/25 Visit Reasons: RT hand surgery Subjective: Pt reports R hand is doing better, he can do most of his activities c/o the webbing and not being able to seperate digit. Objective: Please see flow sheet for ther ex list. Assessment: Added functional strengthening with medium thera band, pt able to perform with no complaints. Plan: Continue with POC. Length of Time (minutes) of Treatment: 30 Minutes HEAD OF BUSINESS DEVELOPMENT Service Modifier Method I: Divide the number of min of care provided by the HEAD OF BUSINESS DEVELOPMENT/SALES AND PRODUCTION MANAGER by the total min of care provided then multiply by 100. If greater than 11 percent modifier is required. Method II: Divide the total time of care provided to patient by 10 (round to the nearest whole number) and add 1 min. to set the minimum time requirement. If treatment total was 60 min., then 10% of 6 min PT CQ modifier applied: CQ Modifier applied Procedure Charges Therapeutic Exercise 30 minutes: Yes
--- NOTE | 2025-02-21 10:26 | PT.ODS1RPT ---
PT OP Progress/Discharge Note Date of Service: 02/21/25 Progress Note/DC Note Progress Note/Discharge Note: DC Note Patient Information Visit Reasons: RT hand surgery Medical Diagnosis: Right Hand Pain' Right Hand Injury Treatment Dx #1: Right Hand Pain Treatment Dx #2: Right Hand Weakness Service Continue Service or Discharge: Discharge Discharge Date: 02/21/25 Status Subjective: Pt's right hand is much better and notice progress. 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 Pt has a follow up appt with surgeon next month. Objective: Right Wrist AROM: all motions are WNL Right Wrist MMTs: grossly 4/5 Display Card Writer Strength L: 81 lbs R: 65 lbs Assessment: Pt demonstrate functional right hand mobility and strength allowing him to resume ADLs, gripping, lifting, and performing recreational activities with less limitation. At this time Pt has plateau towards goals and will no longer benefit from physical therapy. Pt was instructed on HEP last session and educated to continue exercises to maintian overall mobility. Pt performed all exercises safely, thank you for your referrals. Plan: D/C home with HEP and follow up with MD RAMÍREZ Procedure Charges Therapeutic Exercise 30 minutes: Yes Self Care/Home Mgmt 15 minutes: Yes
== END 2025-03-16 23:59 | disposition home or self-care (01) ==
LOC: CPTX 10:00
DX: M79.641 Pain in right hand (principal); R53.1 Weakness; S69.91XD Unspecified injury of right wrist, hand and finger(s), subsequent encounter; W55.12XD Struck by horse, subsequent encounter
CPT/HCPCS: 97110; 97535